=== PATIENT | female | born 1950 | race Caucasian/White ===

== ENCOUNTER → 2019-12-17 12:22 | Outpatient (CLI) | payer MEDICARE, SELFPAY ==
--- NOTE | ~2019-12-17 | DEXA_ITS ---
Bone Density Report Name: Marilia Bustamante Age: 69 Sex: Female Ethnicity: White Date of : 1950 Indication: postmenopausal; screening for osteoporosis; parental hip fracture; Referring Provider: MarioRaymond Study: Bone densitometry was performed. Exam Date: December 17, 2019 Accession number: [id number] Bone Density: Region BMD T-score Z-score Classification AP Spine (L1-L4) 0.950 -0.9 1.3 Normal Femoral Neck (Left) 0.708 -1.3 0.6 Osteopenia Total Hip (Left) 0.840 -0.8 0.7 Normal Femoral Neck (Right) 0.694 -1.4 0.5 Osteopenia Total Hip (Right) 0.834 -0.9 0.7 Normal Total Hip Mean 0.837 -0.9 0.7 Normal World Health Organization criteria for BMD impression classify patients as: Normal (T-score at or above -1.0), Osteopenia (T-score between -1.0 and -2.5), or Osteoporosis (T-score at or below -2.5). 10-year Fracture Risk(1): Major Osteoporotic Fracture 15% Hip Fracture 3.5% Reported Risk Factors: [place] (), Neck BMD=0.694, BMI=28.3, parental fracture (1) FRAX(R) Version 3.08. Fracture probability calculated for an untreated patient. Fracture probability may be lower if the patient has received treatment. Previous Exams: Region Exam Age BMD T-score BMD Change BMD Change Date g/cm2 vs Baseline vs Previous AP Spine(L1-L4) 12/17/2019 69 0.950 -0.9 0.008 0.008 06/16/2014 63 0.941 -1.0 Total Hip(Left) 12/17/2019 69 0.840 -0.8 -0.024 -0.024 06/16/2014 63 0.864 -0.6 Total Hip(Right) 12/17/2019 69 0.834 -0.9 -0.056* -0.056* 06/16/2014 63 0.890 -0.4 *Denotes significance at 95% confidence level, LSC for AP Spine = 0.022 g/cm2, LSC for Total Hip = 0.027 g/cm2 Clinical Information Provided by Patient: Parent has had a hip fracture Has used the following medications: Vitamin D, Calcium Patient maximum height was 64 Menopause Age: 50 Drinks caffeinated beverages Onset of menses at age 10 Number of children 2 Impression: The patient has low bone mass, based on the Right Femoral Neck T-score. The patient has an estimated ten-year risk of hip fracture of 3.5% and an estimated ten-year risk of major fracture of 15%, based on the WHO FRAX algorithm. The patient has risk factors, including: parental hip fracture. The BMD for the Total Hip(Right) decreased, changing by -0.056 since the last DXA exam. Discussion: BONE DENSITY IS LOW AT ONE OR MORE SKELET
== END ==
PROVIDERS: PCP Internal Medicine; Visit Provider Internal Medicine
DX: Z78.0 Asymptomatic menopausal state (principal); M85.89 Other specified disorders of bone density and structure, multiple sites
CPT/HCPCS: 77080

== ENCOUNTER → 2020-02-10 15:14 | Outpatient (CLI) | payer MEDICARE, SELFPAY ==
--- NOTE | ~2020-02-10 | MM_ITS ---
EXAMINATION: MM screening [facility] BI w geraldo HISTORY: Screening mammogram TECHNIQUE: Craniocaudal and mediolateral oblique 3-D tomosynthesis images were obtained and synthetic 2-D images were generated. CAD analysis was submitted and interpreted. COMPARISON: 09/20/2018, 06/16/2014 bilateral digital screening mammogram examinations BREAST PARENCHYMAL COMPOSITION: The breasts are heterogeneously dense, which may obscure small masses . FINDINGS: Occasional bilateral benign calcifications and stable mild fibroglandular asymmetry, withou t significant change since 06/16/2014. There is no evidence of suspicious mass, calcification, or ar chitectural distortion to suggest malignancy in either breast. There has been no suspicious interval change. IMPRESSION: 1. No mammographic evidence of malignancy 2. Recommend routine screening mammography in one year BI-RADS Category 2: Benign finding(s). Reviewed, dictated and finalized at location A.
== END ==
PROVIDERS: PCP Internal Medicine; Visit Provider Internal Medicine
DX: Z12.31 Encounter for screening mammogram for malignant neoplasm of breast (principal)
CPT/HCPCS: 77063; 77067

== ENCOUNTER → 2021-03-10 12:47 | Outpatient (CLI) | payer MEDICARE, SELFPAY ==
--- NOTE | ~2021-03-10 | MM_ITS ---
EXAMINATION: MM screening [facility] BI w geraldo HISTORY: Screening mammogram TECHNIQUE: Craniocaudal and mediolateral oblique 3-D tomosynthesis images were obtained and synthetic 2-D images were generated. CAD analysis was submitted and interpreted. COMPARISON: 02/10/2020, 09/20/2018, 06/16/2014 BREAST PARENCHYMAL COMPOSITION: The breasts are heterogeneously dense, which may obscure small masses . FINDINGS: There is no evidence of suspicious mass, calcification, or architectural distortion to sugg est malignancy in either breast. There has been no suspicious interval change. IMPRESSION: 1. No mammographic evidence of malignancy. 2. Recommend routine screening mammography in one year. BI-RADS Category 1: Negative Reviewed, dictated and finalized at location A. T PICKER
== END ==
PROVIDERS: PCP Internal Medicine; Visit Provider Internal Medicine
DX: Z12.31 Encounter for screening mammogram for malignant neoplasm of breast (principal)
CPT/HCPCS: 77063; 77067

== ENCOUNTER → 2022-05-11 12:18 | Outpatient (CLI) | payer MEDICARE, SELFPAY ==
--- NOTE | ~2022-05-11 | MM_ITS ---
EXAMINATION: MM screening [facility] BI w geraldo HISTORY: Screening mammogram TECHNIQUE: Craniocaudal and mediolateral oblique 3-D tomosynthesis images were obtained and synthetic 2-D images were generated. CAD analysis was submitted and interpreted. COMPARISON: 03/10/2021, 02/10/2020, 09/20/2018 BREAST PARENCHYMAL COMPOSITION: The breasts are heterogeneously dense, which may obscure small masses . FINDINGS: No suspicious mass, calcification, or architectural distortion are identified in either rebecca ast to suggest malignancy. There has been no suspicious interval change. IMPRESSION: 1. No mammographic evidence of malignancy. 2. Recommend routine screening mammography in one year. BI-RADS Category 1: Negative Reviewed, dictated and finalized at location A. RUCTIONAL SUPERVISOR
== END ==
PROVIDERS: PCP Internal Medicine; Visit Provider Internal Medicine
DX: Z12.31 Encounter for screening mammogram for malignant neoplasm of breast (principal)
CPT/HCPCS: 77063; 77067

== ENCOUNTER 2022-12-26 04:07 | Inpatient (IN) | payer MEDICARE, SELFPAY ==
[2022-12-26] VITALS (16 sets, daily range): BP systolic 111–157; BP diastolic 52–88; PULSE 67–78; RESP 13–19; TEMP 35.8–36.7; O2SAT 94–100
--- NOTE | ~2022-12-26 | XR_ITS ---
EXAMINATION: XR ERCP DATE: 12/27/2022 12:54 INDICATION: Gallstones TECHNIQUE: 5 spot fluoroscopic images of the right upper quadrant were obtained during endoscopic ret rograde cholangiopancreatography (ERCP) performed by Dr. Fernandez. Radiologist was not present for the imaging or procedure. The amount of fluoroscopy time used during this procedure was 2.9 minutes. COMPARISON: MRCP dated 12/26/2022 FINDINGS: Retrograde contrast injection demonstrates dilation of the common bile duct to 1.3 cm. No definitive intraluminal filling defects appreciated. Contrast also fills approximately 2 cm diameter structure l ateral to the proximal common bile duct which on prior MRCP appears to represent a fusiform choledoch al cyst along the cystic duct. IMPRESSION: 1. Dilation of the common bile duct and 2 cm diameter contrast filling choledochal cyst along the cys tic duct. See procedure note for further detail. Reviewed, dictated and finalized at location A. IMPRESSION: 1. Dilation of the common bile duct and 2 cm diameter contrast filling choledoc madi cyst along the cystic duct. See procedure note for further detail.
--- NOTE | ~2022-12-26 | CT_ITS ---
EXAMINATION: CT abdomen pelvis w con DATE: 12/26/2022 05:28 INDICATION: Generalized abdominal pain. Nausea and vomiting. TECHNIQUE: Computed tomography (CT) of the abdomen and pelvis was performed with 100 mL Omnipaque 350 intravenous contrast. Automated exposure control and iterative reconstruction technique were employe d. The dose-length product was 596.98 mGy-cm. COMPARISON: None. FINDINGS: The visualized portions of the lung bases demonstrate mild atelectasis. No pleural effusion . The heart size is normal. No pericardial effusion. There is a small sliding hiatal hernia. There is a 5 mm cyst in the liver. There is mild intrahepatic biliary duct dilatation. The common duct is dil ated to 12 mm. The gallbladder is distended and contains gallstones. Gallbladder wall thickening is n oted. The spleen, pancreas, and adrenal glands are normal. There are cysts in the kidneys measuring u p to 8 mm on the right. There are no dilated loops of bowel. There is diverticulosis of the colon wit hout evidence of diverticulitis. The appendix is normal. Aortic atherosclerosis is noted. There are n o pathologically enlarged lymph nodes. There is no free intraperitoneal fluid. There is severe lumbar spondylosis. IMPRESSION: 1. Acute cholecystitis. 2. Mild intrahepatic and extrahepatic biliary duct dilatation. 3. Small sliding hiatal hernia. Reviewed, dictated and finalized at location A.
--- NOTE | ~2022-12-26 | MR_ITS ---
EXAMINATION: MR MRCP wo/w con/w 3D wo ind DATE: 12/26/2022 12:31 INDICATION: Biliary duct dilatation. Abnormal liver function tests. TECHNIQUE: Magnetic resonance imaging (MRI) of the abdomen was performed without and with 15 mL Multi Vadim intravenous contrast. Sequences included coronal T2-weighted FS FSE, coronal T2-weighted FSE, a xial T1-weighted LAVA, coronal FS FIESTA, axial dual-echo T1-weighted SPGR, coronal lava-FLEX, sagitt al T2-weighted FSE, axial T2-weighted FSE, and axial DWI. Thick-slab T2-weighted FSE images were obta ined for magnetic resonance cholangiopancreatography (MRCP). Maximum intensity projection 3-D reconst ructions of the volumetric data were created by the technologist. Postcontrast sequences included cor onal LAVA-flex and time course of axial T1-weighted LAVA. COMPARISON: CT abdomen and pelvis 12/26/2022 FINDINGS: ABDOMEN MRI: There is a 4 mm cyst in the liver. The spleen is normal. The gallbladder is distended an d contains gallstones. Gallbladder wall thickening is noted. The pancreas and adrenal glands are norm al. There are cysts in the kidneys measuring up to 11 mm on the right. There are no dilated loops of bowel. There are no pathologically enlarged lymph nodes. There is no free intraperitoneal fluid. ABDOMEN MRCP: There is mild intrahepatic biliary duct dilatation. The common duct is dilated to 12 mm . There are two 5 mm stones in the common duct. IMPRESSION: 1. Choledocholithiasis with mild intrahepatic and extrahepatic bile duct dilatation. 2. Acute cholecystitis. Reviewed, dictated and finalized at location A. IMPRESSION: 1. Choledocholithiasis with mild intrahepatic and extrahepatic bile duct dilata tion. 2. Acute cholecystitis.
[2022-12-26 04:41] LABS: Basophils Percent Auto 0.3 % (0.2-1.2); Hemoglobin 14.6 g/dL (12.0-15.0); Immature Granulocyte Absolute 0.03 K/mm3 (0.00-0.031); Immature Granulocyte Percent A 0.4 % (0-0.5); Lymphocytes Percent Auto 8.8 % (18.3-44.2); Mean Corpuscular HGB Conc 33.2 g/dl (32-36); Mean Corpuscular Hemoglobin 30.1 pg (26-34); Mean Corpuscular Volume 90.7 fl (80-100); Mean Platelet Volume 9.8 fl (7.4-10.4); Monocytes Absolute Auto 0.4 K/mm3 (0.1-0.6); Monocytes Percent Auto 4.5 % (2.6-8.5); Neutrophils Absolute Auto 6.8 K/mm3 (1.3-6.7); Platelet Count Result 227 k/mm3 (150-375); Red Blood Count 4.85 M/mm3 (4.2-5.4); White Blood Count 7.9 K/mm3 (4.5-10.0)
[2022-12-26 04:52] LABS: Alanine Aminotransferase 426 U/L (6-35); Albumin Level 4.5 g/dL (3.5-5.1); Alkaline Phosphatase 319 U/L (38-126); Anion Gap 11 mmol/L (8-16); Aspartate Amino Transferase 109 U/L (14-36); Bilirubin,Total 0.8 mg/dL (0.2-1.3); Blood Urea Nitrogen 16 mg/dL (7-17); Calcium 9.1 mg/dL (8.4-10.2); Carbon Dioxide 27 mmol/L (22-30); Chloride 99 mmol/L (98-107); Estimated CRCL calculation 59 ml/min; Estimated Glomerular Filt Rate > 60; Glucose 151 mg/dL (65-110); Lipase 65 U/L (23-300); Sodium 137 mmol/L (137-145)
[2022-12-26] MEDS: ONDANSETRON INJ 4 MG/2 ML VIAL IV PUSH ×2 (05:04→07:32)
[2022-12-26] MEDS: HYDROmorphone HCL INJ (*CRX) 1 MG/ML SYR 0.5 MG IV PUSH ×6 (05:04→20:27)
[2022-12-26] MEDS: SODIUM CHLORIDE 0.9% IV 1,000 ML 999 ML IV CONT (05:06)
--- NOTE | 2022-12-26 05:17 | ED.ABDPAIN ---
HPI - Abdominal Pain General Chief Complaint: Abdominal Pain Stated Complaint: abd pain, N/V Time Seen by Provider: 12/26/22 04:14 History of Present Illness HPI narrative: Patient presents to the emergency department with generalized abdominal discomfort and vomiting. Symptoms started a couple hours prior to arrival. Patient is very uncomfortable. Denies history of abdominal surgeries. She is pleasant but in distress. She is accompanied by a friend Related Data Allergies Allergy/AdvReac Type Severity Reaction Status Date / Time sulfamethizole AdvReac Rash Verified 12/26/22 04:33 Review of Systems Review of Systems: Review of systems negative for anything that documented in the HPI Exam Narrative: GENERAL: Well-appearing, well-nourished, and uncomfortable HEAD: Normocephalic, atraumatic. EYES: PERRLA and EOMI. ENT: Nares clear, no rhinorrhea or epistaxis. Mucous membranes moist. NECK: Supple. CHEST: Clear to auscultation. No respiratory distress. HEART: Regular rate and rhythm. ABDOMEN: Soft, nondistended. tender EXTREMITIES: Normal range of motion. No edema. SKIN: Warm, dry, no rash. NEURO: No focal deficits. Alert and oriented x3. PSYCH: Normal mood and affect. Course Course Emergency Course: Differential diagnosis includes but not limited to small bowel obstruction, ileus, colitis, gastroenteritis, cholecystitis, appendicitis. Reevaluation(s) Reevaluation #1: Patient feeling much better after initial dose of Dilaudid but pain has now returned. She has acute cholecystitis on her CT. Liver enzymes elevated but bilirubin normal. Discussed patient's presentation history and results with Dr. Thornton general surgery. He agrees to admit the patient. As needed orders placed. Results and plan discussed with patient and her friend. Vital Signs Vital signs: Vital Signs Temperature 36.3 C L 12/26/22 04:14 Pulse Rate 71 12/26/22 04:14 Respiratory Rate 18 12/26/22 04:14 Blood Pressure 157/76 H 12/26/22 04:14 Pulse Oximetry 98 12/26/22 04:14 Oxygen Delivery Room Air 12/26/22 04:14 Temperature 36.3 C L 12/26/22 04:14 Pulse Rate 76 12/26/22 06:46 Respiratory Rate 19 12/26/22 06:46 Blood Pressure 126/61 12/26/22 06:46 Pulse Oximetry 100 12/26/22 06:46 Oxygen Delivery Room Air 12/26/22 04:14 MDM - Abdominal Pain Lab Data 12/26/22 04:34 12/26/22 04:35 Labs: Lab Results 12/26/22 12/26/22 12/26/22 Range/Units 04:34 04:35 06:59 WBC 7.9 (4.5-10.0) K/mm3 RBC 4.85 (4.2-5.4) M/mm3 Hgb 14.6 (12.0-15.0) g/dL Hct 44.0 (37.0-47.0) % MCV 90.7 (80-100) fl MCH 30.1 (26-34) pg MCHC 33.2 (32-36) g/dl RDW 14.0 (11.5-14.5) % Plt Count 227 (150-375) k/mm3 MPV 9.8 (7.4-10.4) fl Immature Gran % (Auto) 0.4 (0-0.5) % Neut % (Auto) 86.0 H (45.5-73.1) % Lymph % (Auto) 8.8 L (18.3-44.2) % [place] % (Auto) 4.5 (2.6-8.5) % Eos % (Auto) 0.0 (0-4.4) % Baso % (Auto) 0.3 (0.2-1.2) % Lymph # (Auto) 0.70 L (0.9-3.2) K/mm3 [place] # (Auto) 0.4 (0.1-0.6) K/mm3 Eos # (Auto) 0.0 (0-0.3) K/mm3 Baso # (Auto) 0.0 (0.0-0.1) K/mm3 Abs Immat Gran (auto) 0.03 (0.00-0.031) K/mm3 Absolute Neuts (auto) 6.8 H (1.3-6.7) K/mm3 Absolute Nucleated RBC 0.0 (0.0-0.012) K/mm3 Nucleated RBC % 0.0 (0.0-0.2) % Sodium 137 (137-145) mmol/L Potassium 4.0 (3.4-5.0) mmol/L Chloride 99 (98-107) mmol/L Carbon Dioxide 27 (22-30) mmol/L Anion Gap 11 (8-16) mmol/L BUN 16 (7-17) mg/dL Creatinine 0.70 (0.7-1.0) mg/dL Estim Creat Clear Calc 59 ml/min Estimated GFR > 60 (59 - ) Glucose 151 H (65-110) mg/dL Calcium 9.1 (8.4-10.2) mg/dL Total Bilirubin 0.8 (0.2-1.3) mg/dL AST 109 H (14-36) U/L ALT 426 H (6-35) U/L Alkaline Phosphatase 319 H (38-126) U/L Total Protein 8.0 (6.3-8.2) g/dL Albumin 4.5
[2022-12-26 07:07] LABS: Appearance Urine Clear (Clear); Bilirubin Urine Negative (Negative); Blood Urine Negative (Negative); Color Urine Yellow (Yellow); Glucose Urine UA Trace mg/dL (Negative); Ketones Urine 1+ mg/dL (Negative); Leukocyte Esterase Ur Negative LEU/UL (Negative); Nitrate Urine Negative (Negative); Protein Urine Negative (Negative); Specific Grav Ur 1.033 (1.001-1.035); Urobilinogen Urine 0.2 mg/dL (<2.0); pH Urine 7.5 (5.0-9.0)
[2022-12-26 07:14] LABS: Add Urine Microscopic? NO
[2022-12-26] MEDS: PIPERACILLN/TAZ 3.375GM/NS50ML 3.375 GM/50 ML BAG IVPB (07:33)
--- NOTE | 2022-12-26 09:16 | ADMGEN ---
This patient, Marilia Bustamante, was admitted to Medical Room 343-01. Patient/family oriented to hospital policies and general routines including ID bracelet, bed and alarms, visiting hours, pain management, procedures, bathroom and other care routines, personal items, smoking policy, room service/diet, and visiting hours. Information on how to activate the Rapid Response Team has been discussed. Patient/Family are encouraged to report perceived risks to care and to ask questions if they do not understand what they are told or what they should do.
[2022-12-26] MEDS: FAMOTIDINE 20 MG/2 ML VIAL IV PUSH ×2 (09:55→20:27)
[2022-12-26] MEDS: SODIUM CHLORIDE 0.9% IV 1,000 ML 125 ML IV CONT ×2 (09:55→20:00)
--- NOTE | 2022-12-26 10:46 | PM.IMHP ---
H&P: HPI History of Present Illness Date/Time: 12/26/22 10:46 Chief Complaint: Epigastric abdominal pain Narrative: This is a 72-year-old woman who presented to the ER early this morning with epigastric abdominal pain x1 day. She reports having intermittent episodes of heartburn after eating for the past few weeks. Then, 9 days ago she developed epigastric abdominal pain and vomiting but is unsure if this was following a fatty meal. Her epigastric pain radiated to her mid back. Her vomiting lasted about 24 hours, and her abdominal pain improved. She overall felt unwell and had a poor appetite for the next week. She was only eating very small amounts of food and felt that it did aggravate her pain at times. Last night, she had a sandwich and Welsh fries for dinner. About 1-2 hours after eating, she developed severe epigastric abdominal pain and vomiting. She vomited about 5 times. Her pain persisted and she presented to the ER for further evaluation. Labs showed a white blood cell count of 7900, total bilirubin 0.8, AST 109, ALT 426, alk-phos 319, lipase normal. CT scan of the abdomen and pelvis showed gallbladder distention with gallstones and gallbladder wall thickening, consistent with acute cholecystitis. Additionally noted was mild intrahepatic and extrahepatic biliary duct dilatation with a common bile duct measuring 12 mm. She has been admitted to our service for surgical evaluation of acute cholecystitis. She is seen this morning and is still having epigastric abdominal pain. The IV Dilaudid is helping control her pain, but she still rates her epigastric pain at a 5/10 on a pain scale. Denies fevers, chills, acholic stools, or dark-colored urine. No previous abdominal surgeries. Review of Systems Review of Systems: All systems reviewed & are unremarkable except as noted in HPI and below PMFSH Past Medical History Medical History No pertinent past medical history Surgical History Surgical History No significant past surgical history Social History Social History Smoking status: Never smoker Alcohol intake: former Substance use: never Substance use type: does not use Lack of Transportation: No Lack of Food: Never True Current Housing: I Have Housing Concerned About Future Housing: No Difficulty Paying Gas/Electric Bills: No Difficulty Paying for Meds: No Currently Unemployed: No Education: High School Diploma/GED Difficulty w/ Childcare or Family Care: No Spiritual care concerns: No Meds Home Medications and Allergies Home Medications Medication Instructions Recorded Confirmed Type No Home Medications 12/26/22 12/26/22 History Allergies Allergy/AdvReac Type Severity Reaction Status Date / Time sulfamethizole AdvReac Rash Verified 12/26/22 04:33 Vital Signs Vital Signs - 24 hr 12/26/22 04:14 12/26/22 04:31 12/26/22 06:00 Temperature 97.3 F L Pulse Rate 71 72 75 Respiratory Rate 18 15 14 Blood Pressure 157/76 H 155/79 H 148/75 H Pulse Oximetry 98 100 97 Oxygen Delivery Room Air 12/26/22 06:01 12/26/22 06:02 12/26/22 06:15 Temperature Pulse Rate 72 73 72 Respiratory Rate 13 14 15 Blood Pressure 151/72 H Pulse Oximetry 95 95 95 Oxygen Delivery 12/26/22 06:30 12/26/22 06:31 12/26/22 06:45 Temperature Pulse Rate 72 71 78 Respiratory Rate 17 14 14 Blood Pressure 148/76 H Pulse Oximetry 95 96 96 Oxygen Delivery 12/26/22 06:46 12/26/22 07:42 12/26/22 08:13 Temperature 98.0 F Pulse Rate 76 69 72 Respiratory Rate 19 18 18 Blood Pressure 126/61 155/88 H 134/72 Pulse Oximetry 100 98 100 Oxygen Delivery 12/26/22 08:55 Temperature 98.1 F Pulse Rate 69 Respiratory Rate 16 Blood Pressure 134/59 L Pulse Oximetry 99 Oxygen Delivery Exam Cons
--- NOTE | 2022-12-26 11:49 | PC.NURSE ---
Patient off of unit to MRI
--- NOTE | 2022-12-26 12:42 | PC.NURSE ---
Patient returned to unit from MRI
[2022-12-27] VITALS (12 sets, daily range): BP systolic 110–145; BP diastolic 55–84; PULSE 76–81; RESP 12–24; TEMP 36.1–37.2; O2SAT 94–100
[2022-12-27] MEDS: SODIUM CHLORIDE 0.9% IV 1,000 ML 125 ML IV CONT ×2 (05:29→19:16)
[2022-12-27] MEDS: HYDROmorphone HCL INJ (*CRX) 1 MG/ML SYR 0.5 MG IV PUSH ×2 (05:30→10:10)
--- NOTE | 2022-12-27 07:37 | WPDGICN ---
Assessment and Plan Assessment and plan (1) Choledocholithiasis: Code(s): K80.50 - Calculus of bile duct without cholangitis or cholecystitis without obstruction Status: Acute Assessment and Plan: patient with epigastric pain elevated LFTs and abnormal MRCP which suggest common bile duct gallstones in addition cholecystitis and cholelithiasis. Agree with broad-spectrum antibiotic coverage. ERCP will be anticipated in attempt to remove these common bile duct gallstones prior to cholecystectomy. Surgery is following patient. will try to proceed with this today. (2) Acute cholecystitis: Code(s): K81.0 - Acute cholecystitis Status: Acute Assessment and Plan: Patient found to have gallstones an apparent cholecystitis on CT scan imaging. Surgery is following patient. Plan to continue antibiotics with ultimately surgery anticipated. GI Consult Note Consult date/time: 12/27/22 07:37 Reason for consult: choledocholithiasis HPI: Marilia Bustamante is a 72 year old female I am asked to see because of choledocholithiasis and cholecystitis. Patient reports she has had vague intermittent abdominal pain over the last several weeks. patient developed rather significant epigastric pain over the last 2 days. This occurred after eating out including Armenian fries. Pain occurred in the mid epigastric area. It was associated with some nausea and vomiting. For this reason patient presented to the emergency room. Transaminases and alkaline phosphatase was elevated. CT scan suggested cholecystitis. MRCP was performed yesterday suggesting 2 common bile duct gallstones in addition to cholelithiasis and cholecystitis. Patient has achieved some pain control. She denies any fever. Her stools have remained normal color and she denies any jaundice. She never knew that she had gallstones prior to this. Past medical is suggestive of diverticulitis in the past. Patient's family history is noncontributory. Patient continues to have mild epigastric discomfort this morning. Review of Systems Review of Systems: Review of systems noncontributory. [facility] Past Medical History Medical History No pertinent past medical history Surgical History Surgical History No significant past surgical history Social History Social History (Reviewed 12/26/22 @ 10:54 by VERONICA Boo Smoking status: Never smoker Alcohol intake: former Substance use: never Substance use type: does not use Lack of Transportation: No Lack of Food: Never True Current Housing: I Have Housing Concerned About Future Housing: No Difficulty Paying Gas/Electric Bills: No Difficulty Paying for Meds: No Currently Unemployed: No Education: High School Diploma/GED Difficulty w/ Childcare or Family Care: No Spiritual care concerns: No Meds Home Medications and Allergies Home Medications Medication Instructions Recorded Confirmed Type No Home Medications 12/26/22 12/26/22 History Allergies Allergy/AdvReac Type Severity Reaction Status Date / Time sulfamethizole AdvReac Rash Verified 12/26/22 04:33 Vital Signs Vital Signs - 24 hr 12/26/22 07:42 12/26/22 08:13 12/26/22 08:55 Temperature 98.0 F 98.1 F Pulse Rate 69 72 69 Respiratory Rate 18 18 16 Blood Pressure 155/88 H 134/72 134/59 L Pulse Oximetry 98 100 99 Oxygen Delivery 12/26/22 14:54 12/26/22 21:33 12/26/22 20:00 Temperature 97.3 F L 96.5 F L Pulse Rate 67 72 72 Respiratory Rate 18 18 18 Blood Pressure 131/52 L 111/52 L Pulse Oximetry 98 94 94 Oxygen Delivery Room Air 12/27/22 05:48 Temperature 96.9 F L Pulse Rate 77 Respiratory Rate 16 Blood Pressure 127/55 L Pulse Oximetry 96 Oxygen Delivery Exam Narrative: Physical exam reveals patient to be alert. Vital signs stable. HEENT
[2022-12-27] MEDS: FAMOTIDINE 20 MG/2 ML VIAL IV PUSH ×2 (08:17→20:08)
[2022-12-27] MEDS: LACTATED RINGERS 1,000 ML 150 ML IV CONT (11:50)
--- NOTE | 2022-12-27 12:02 | WPDANESEPPF ---
Anes - Initial Pre Proc Eval Procedure: Operation Date: 12/26/22 14:00 Proposed Procedures p Laparoscopic Cholecystectomy - Jina Thornton MD Operation Date: 12/27/22 14:15 Proposed Procedures p Endoscopic Retro Cholangiopancreatogram - Jarvis Browne MD Date/Time: 12/27/22 12:02 Surgeon: Jina Thornton MD Pre Op Diagnosis: Acute Kelli Patient Data Age: 72 Gender: F Height: 1.63 m Weight: 72.7 kg Last Vital Signs Temp 98.9 F 12/27/22 11:24 Pulse 78 12/27/22 11:24 Resp 18 12/27/22 11:24 BP 137/61 12/27/22 11:24 Pulse Ox 96 12/27/22 11:24 O2 Del Method Room Air 12/27/22 11:24 Allergies Allergy/AdvReac Type Severity Reaction Status Date / Time sulfamethizole AdvReac Rash Verified 12/26/22 04:33 Home Medications Medication Instructions Recorded Confirmed Type No Home Medications 12/26/22 12/26/22 History Patient hx anesthesia problems: none Family hx anesthesia problems: none Results Review: All pre-operative results and documents have been reviewed as part of the pre-operative evaluation. [facility] Past Medical History Medical History No pertinent past medical history Surgical History Surgical History No significant past surgical history Social History Social History Smoking status: Never smoker Alcohol intake: former Substance use: never Substance use type: does not use Lack of Transportation: No Lack of Food: Never True Current Housing: I Have Housing Concerned About Future Housing: No Difficulty Paying Gas/Electric Bills: No Difficulty Paying for Meds: No Currently Unemployed: No Education: High School Diploma/GED Difficulty w/ Childcare or Family Care: No Spiritual care concerns: No Anes - Eval Final PreProcedure Day of Procedure 12/27/22 12:02 Patient weight: normal Heart: regular rate and rhythm Lungs: clear to auscultation Airway: Mallampati scale class II Neurological: alert and oriented Last oral intake: >/= 8 hours ASA classification: III Emergent: no Anesthetic plan: proceed Anesthesia type and monitoring: general ETT and standard monitoring Results Review: All pre-operative results and documents have been reviewed as part of the pre-operative evaluation. Informed Consent: The patient's anesthetic plan and its attendant risks and benefits were discussed with the patient/family/POA. Questions were solicited and answers provided to the satisfaction of the patient/family/POA.
--- NOTE | 2022-12-27 14:13 | WPDANESPN ---
Anes - Prog Note Post-Op Date/Time: 12/27/22 14:13 Cardiovascular status: normal Respiratory status: normal Airway patency: baseline Mental status: baseline Post-Op hydration status: normal Vital Signs: Last Vital Signs Temp 36.9 C 12/27/22 12:56 Pulse 76 12/27/22 13:46 Resp 17 12/27/22 13:46 BP 138/73 12/27/22 13:46 Pulse Ox 96 12/27/22 13:46 O2 Del Method Room Air 12/27/22 13:46 O2 Flow Rate 4 12/27/22 13:06 Pain Score (VAS): 2/10 I/O: Intake & Output 12/26/22 12/27/22 12/27/22 23:59 07:59 15:59 Intake Total 1000 1000 50 Balance 1000 1000 50 Laboratory Tests 12/26/22 04:34 12/26/22 04:35 Post-procedural complaints: none Patient Feedback: Patient satisfied with anesthetic care.
--- NOTE | 2022-12-27 15:47 | PM.PNGS ---
Progress Note: A&P Assessment and Plan (1) Acute cholecystitis: Code(s): K81.0 - Acute cholecystitis Status: Acute Assessment and Plan: will reassess exam in am given recent anesthesia, if improved will dc c abx and refer to [facility] as outpt (2) Choledochal cyst: Code(s): Q44.4 - Choledochal cyst Status: Acute Assessment and Plan: will need referral to [facility] Subjective Subjective Date/Time Seen: 12/27/22 15:47 Interval history: still waking from anesthesia s/p ERCP, report reviewed Review of Systems Review of Systems: All systems reviewed & are unremarkable except as noted in HPI and below Exam Const: General: cooperative, comfortable and no acute distress Resp: Auscultation: clear to auscultation bilaterally Cardio: Rate: regular rate Rhythm: regular rhythm GI: Inspection: normal to inspection and distended GI Palp: Yes abdominal tenderness and Yes Soft to palpation Objective Data Vital Signs Vital Signs: Vital Signs - 24 hr 12/26/22 21:33 12/26/22 20:00 12/27/22 05:48 Temperature 35.8 C L 36.1 C L Pulse Rate 72 72 77 Respiratory Rate 18 18 16 Blood Pressure 111/52 L 127/55 L Pulse Oximetry 94 94 96 Oxygen Delivery Room Air Oxygen Flow Rate 12/27/22 08:22 12/27/22 11:04 12/27/22 11:24 Temperature 37.2 C Pulse Rate 78 Respiratory Rate 18 Blood Pressure 137/61 Pulse Oximetry 94 96 Oxygen Delivery Room Air Room Air Room Air Oxygen Flow Rate 12/27/22 12:56 12/27/22 13:06 12/27/22 13:16 Temperature 36.9 C Pulse Rate 77 78 81 Respiratory Rate 18 20 12 Blood Pressure 110/56 L 124/68 140/73 Pulse Oximetry 98 100 100 Oxygen Delivery Nasal Cannula Nasal Cannula Room Air Oxygen Flow Rate 10 4 12/27/22 13:26 12/27/22 13:36 12/27/22 13:46 Temperature Pulse Rate 81 78 76 Respiratory Rate 24 H 18 17 Blood Pressure 134/84 145/71 H 138/73 Pulse Oximetry 100 100 96 Oxygen Delivery Room Air Room Air Room Air Oxygen Flow Rate 12/27/22 14:00 Temperature 36.3 C L Pulse Rate 79 Respiratory Rate 14 Blood Pressure 137/69 Pulse Oximetry 94 Oxygen Delivery Oxygen Flow Rate Intake/Output Intake/Output: Intake & Output 12/24/22 12/25/22 12/26/22 12/27/22 23:59 23:59 23:59 23:59 Intake Total 2049 105 Balance 2049 105 Meds/Results Medications: Active Medications Generic Name Dose Route Start Last Admin Trade Name Freq PRN Reason Stop Dose Admin Famotidine 20 mg 12/26/22 09:00 12/27/22 08:17 Famotidine 20 Mg/2 Ml Vial IV PUSH 20 mg Q12HR SALAZAR Administration Hydromorphone HCl 0.5 mg 12/26/22 11:03 12/27/22 10:10 Hydromorphone Hcl Inj (*Crx) 1 Mg/Ml Syr IV PUSH 0.5 mg Q2H PRN Administration Pain Rated 7-10 Sodium Chloride 1,000 mls @ 125 mls/hr 12/26/22 07:25 12/27/22 05:29 Normal Saline Iv IV CONT 125 mls/hr .Q8H SALAZAR Administration Ondansetron HCl 4 mg 12/26/22 07:24 Ondansetron Inj 4 Mg/2 Ml Vial IV PUSH Q4H PRN Nausea Radiology Results: ITS Impressions Abdomen/Pelvis CT 12/26/22 05:56 IMPRESSION: 1. Acute cholecystitis. 2. Mild intrahepatic and extrahepatic biliary duct dilatation. 3. Small sliding hiatal hernia. MRCP 12/26/22 12:38 IMPRESSION: 1. Choledocholithiasis with mild intrahepatic and extrahepatic bile duct dilatation. 2. Acute cholecystitis. Endo Retro Cholangiopancreatogram 12/27/22 12:55 IMPRESSION: 1. Dilation of the common bile duct and 2 cm diameter contrast filling choledochal cyst along the cystic duct. See procedure note for further detail.
[2022-12-27] MEDS: ACETAMINOPHEN 500 MG TABLET 1000 MG PO (19:15)
[2022-12-28] VITALS (17 sets, daily range): BP systolic 99–130; BP diastolic 44–64; PULSE 64–168; RESP 16–18; TEMP 36.1–37; O2SAT 94–98
--- NOTE | 2022-12-28 | ECHO_ITS ---
Patient Info Name: Marilia Bustamante Age: 72 years : 1950 Gender: Female Ht: 64 in Wt: 160 lbs BSA: 1.83 m2 HR: 74 bpm BP: 128 / 62 mmHg Heart Rhythm: Sinus Rhythm Technical Quality: Fair Exam Date: 12/28/2022 2:34 PM Exam Location: [facility] Pulmonary Exam Room: [facility] Patient Status: Inpatient Admit Date: 12/27/2022 Staff Ordering Physician: Mega Kevin MD Front Desk Specialist: Ana Lawler RDCS Attending Provider: Jian Thornton MD Exam Type: CA echo doppler color flow Study Info Indications - AFIB Complete two-dimensional, color flow and Doppler transthoracic echocardiogram is performed. Summary 1. Left ventricular chamber dimension is normal. 2. Left ventricular systolic function is normal, estimated at >70%. 3. There is no increased left ventricular wall thickness. 4. The left ventricular diastolic function is grade I diastolic dysfunction. 5. Mild to moderate lipomatous hypertrophy of the interatrial septum. 6. There is mild aortic valve sclerosis. 7. There is no aortic valve stenosis. 8. There is trace mitral valve regurgitation. 9. There is trace tricuspid valve regurgitation. 10. No pulmonary hypertension, estimated pulmonary arterial systolic pressure is 27 mmHg. Left Ventricle Left ventricular chamber dimension is normal. Left ventricular systolic function is normal, estimated at >70%. There is no increased left ventricular wall thickness. The left ventricular diastolic function is grade I diastolic dysfunction. Right Ventricle Right ventricular chamber dimension is normal. Right ventricular systolic function is normal. Left Atria Left atrial chamber dimension is normal. Right Atria Right atrial chamber dimension is normal. Atrial Septum Mild to moderate lipomatous hypertrophy of the interatrial septum. Aortic Valve The aortic valve is probable trileaflet. There is mild aortic valve sclerosis. There is no aortic valve stenosis. There is no aortic valve regurgitation. Pulmonic Valve The pulmonic valve is not well visualized. There is trace pulmonic regurgitation. Mitral Valve The mitral valve has thickened leaflets. There is trace mitral valve regurgitation. The mitral valve annulus is moderately calcified. Tricuspid Valve The tricuspid valve leaflets are normal. There is trace tricuspid valve regurgitation. No pulmonary hypertension, estimated pulmonary arterial systolic pressure is 27 mmHg. Pericardium/Pleural The pericardium appears normal. There is trivial pericardial effusion. Inferior Vena Cava Normal inferior vena cava with >50% collapse upon inspiration consistent with normal right atrial pressure, 5 mmHg. Aorta The aortic root size at the sinus of Valsalva is normal. Left Ventricular Outflow Tract Name Value Normal LVOT 2D LVOT Diameter 2.0 cm LVOT Doppler LVOT Peak Gradient 7 mmHg LVOT Mean Gradient 5 mmHg LVOT VTI 29 cm LVOT VTI/AV VTI Ratio 0.8 LVOT Stroke Volume 86 ml LVOT CO 19.2 l/min LVOT CI 10.5 l/min/m2
[2022-12-28] MEDS: SODIUM CHLORIDE 0.9% IV 1,000 ML 125 ML IV CONT ×3 (02:58→19:52)
--- NOTE | 2022-12-28 04:25 | ECG_ITS ---
Measurements Intervals [place] Rate: 168 P: FL: 0 QRS: -28 QRSD: 94 T: 68 QT: 265 QTc: 443 Interpretive Statements ATRIAL FIBRILLATION WITH RAPID VENTRICULAR RESPONSE INFERIOR INFARCT, AGE INDETERMINATE ST-T WAVE ABNORMALITY IN ANTEROLAT/HIGH LAT LEADS- CONSIDER ISCHEMIA BASELINE ARTIFACT- II, III ABNORMAL ECG NO PREVIOUS ECG AVAILABLE FOR COMPARISON Electronically Signed On 12-28-2022 8:28:28 CDT by Sameer Puga D.O.
[2022-12-28] MEDS: METOPROLOL TARTRATE INJ 5 MG/5 ML VIAL IV PUSH (05:32)
[2022-12-28] MEDS: METOPROLOL SUCCINATE EXT REL 25 MG TABCR (06:11)
--- NOTE | 2022-12-28 06:14 | ECG_ITS ---
Measurements Intervals [place] Rate: 81 P: 52 MA: 149 QRS: -30 QRSD: 96 T: 14 QT: 357 QTc: 415 Interpretive Statements SINUS RHYTHM WITH MARKED SINUS ARRHYTHMIA DELAYED PRECORDIAL R/S TRANSITION CONSIDER INFERIOR INFARCT, AGE INDETERMINATE ABNORMAL ECG COMPARED TO ECG 12/28/2022 04:46:20 SINUS RHYTHM NOW PRESENT SINUS ARRHYTHMIA NOW PRESENT Electronically Signed On 12-28-2022 8:32:35 CDT by Sameer Puga D.O.
--- NOTE | 2022-12-28 07:11 | PC.NURSE ---
This patient, Marilia Bustamante, was received from [[id number] ] on 12/28/22 at 0545. Patient/family oriented to unit policies and routines
[2022-12-28] MEDS: FAMOTIDINE 20 MG/2 ML VIAL IV PUSH ×2 (08:49→19:52)
--- NOTE | 2022-12-28 11:11 | PM.CNCAR ---
Assessment and Plan Assessment and plan (1) Atrial fibrillation with rapid ventricular response: Code(s): I48.91 - Unspecified atrial fibrillation Status: Acute Assessment and Plan: New onset symptomatic atrial fibrillation with rapid ventricular response with heart rate up to the 160s. The most imminent contribution likely acute cholecystitis, however, clearly patient has an underlying predisposition for development of atrial fibrillation as counseled. Discussed at great length natural history of of atrial fibrillation, paroxysmal nature of her atrial fibrillation thus far, medical therapy various options including AV sepideh blocking agents, antiarrhythmics, indications for systemic anticoagulation, the relative risks and benefits with aspirin versus systemic anticoagulation balance with reduction in embolic stroke risk and bleeding. We discussed the anticipation she will have atrial fibrillation recur in the future and the elevated risk perioperatively given planned cholecystectomy. CHADS2 Vasc score 2 (age, female sex) in which aspirin 81 mg daily reasonable. Once she turns 73, however, CHADS2 Vasc score will then be 3 and systemic anticoagulation advised as counseled. Patient verbalized understanding and agreed. Explained that if directed rhythm control intervention with electrical cardioversion systemic anticoagulation would be advised to reduce risk for embolic stroke. We also discussed catheter based therapies including atrial fibrillation ablation if appropriate in the future. Patient does not endorse a history of thyroid disease or sleep apnea. We also discussed balance of heart rate/rhythm control and avoidance of medication side effects, symptomatic bradycardia and or hypotension. Patient verbalized understanding and agreed with plan of care. All questions answered to her satisfaction. We also discussed while low the risk for stroke despite guideline recommendations for aspirin versus systemic anticoagulation nonetheless exists but that at this time statistically speaking bleeding risk would outweigh stroke risk on systemic anticoagulation. -continue Toprol XL however increase to 25 mg daily as heart rate permits. Need to monitor closely on a preoperative basis as I anticipate she will have recurrence of atrial fibrillation. IV metoprolol as affective or necessary in unresponsive to AV sepideh blocking agents perioperatively amiodarone not unreasonable but given elevated LFTs with exercise caution in this regard. -2D echocardiogram pending. Will review when available to assess for LV function, chamber size, valve pathology, pulmonary pressures. Her exam is not suggestive significant valvular heart disease but further confirmation warranted. Check TSH. -continue to monitor on telemetry. -DVT prophylaxis. -monitor renal function electrolytes closely. Check BMP, magnesium. -check coagulation studies. -continue to monitor bradycardia. -further recommendation to follow after review of the above evaluation. -clearly, patient does not tolerate atrial fibrillation with RVR well and so a rhythm control strategy was discussed as her primary focus moving forward. (2) Acute cholecystitis: Code(s): K81.0 - Acute cholecystitis Status: Acute Assessment and Plan: Management per Primary Service, GI, and surgery. Anticipated cholecystectomy. May proceed to the operating room necessary, continue to monitor closely as recurrence of atrial fibrillation perioperatively likely. As above, check electrolytes preoperatively to ensure stability in this regard to keep potassium closer to 4 and magnesium around 2.0. (3) Elevated LFTs: Code(s): R79.89 - Other specified abnormal findings of blood chemistry Status: Acute Assessment and Plan: Continue to monitor. Very likely consequence of acute cholecystitis and associated pathology. History of Present Illness History of Present Illness Consult date/time: Date of se
--- NOTE | 2022-12-28 11:13 | PM.IMCN ---
Assessment and Plan Assessment and plan (1) Choledocholithiasis: Code(s): K80.50 - Calculus of bile duct without cholangitis or cholecystitis without obstruction Status: Acute (2) Dilation of biliary tract: Code(s): K83.8 - Other specified diseases of biliary tract Status: Acute (3) Elevated LFTs: Code(s): R79.89 - Other specified abnormal findings of blood chemistry Status: Acute (4) Acute cholecystitis: Code(s): K81.0 - Acute cholecystitis Status: Acute Assessment and Plan: no signs of chf on exam or symptomatically ok for surgery - echo ordered (5) Afib: Code(s): I48.91 - Unspecified atrial fibrillation Status: Acute Assessment and Plan: continue bb Paroxysmal - now in NSR No anticoagulation as she is likely can have surgery. Cardiology consult ordered. Echo ordered TSH pending CHADSVASC2 score 2 (borderline htn = 3) - decide on AC post op HPI Data of Consult Consult date: 12/28/22 Requesting Physician: Jina Thornton MD Primary Care Provider: Sandra Busby, Consult Narrative Narrative: Marilia Bustamante is a 72 year old female Consult for medical management, AFib overnight. Cardiology has also been consulted. This is a 72-year-old woman who presented to the ER early this morning with epigastric abdominal pain x1 day.? She reports having intermittent episodes of heartburn after eating for the past few weeks.? Then, 9 days ago she developed epigastric abdominal pain and vomiting but is unsure if this was following a fatty meal.? Her epigastric pain radiated to her mid back.? Her vomiting lasted about 24 hours, and her abdominal pain improved.? She overall felt unwell and had a poor appetite for the next week.? She was only eating very small amounts of food and felt that it did aggravate her pain at times.? Last night, she had a sandwich and [place] fries for dinner.? About 1-2 hours after eating, she developed severe epigastric abdominal pain and vomiting.? She vomited about 5 times.? Her pain persisted and she presented to the ER for further evaluation.? Labs showed a white blood cell count of 7900, total bilirubin 0.8, AST 109, ALT 426, alk-phos 319, lipase normal.? CT scan of the abdomen and pelvis showed gallbladder distention with gallstones and gallbladder wall thickening, consistent with acute cholecystitis.? Additionally noted was mild intrahepatic and extrahepatic biliary duct dilatation with a common bile duct measuring 12 mm.? She has been admitted to our service for surgical evaluation of acute cholecystitis.? She is seen this morning and is still having epigastric abdominal pain.? The IV Dilaudid is helping control her pain, but she still rates her epigastric pain at a 5/10 on a pain scale.? Denies fevers, chills, acholic stools, or dark-colored urine.? No previous abdominal surgeries. Review of Systems Review of Systems: Ten point review systems negative except as stated in HPI [facility] Past Medical History Medical History Choledochal cyst No pertinent past medical history Surgical History Surgical History No significant past surgical history Social History Social History Smoking status: Never smoker Alcohol intake: former Substance use: never Substance use type: does not use Lack of Transportation: No Lack of Food: Never True Current Housing: I Have Housing Concerned About Future Housing: No Difficulty Paying Gas/Electric Bills: No Difficulty Paying for Meds: No Currently Unemployed: No Education: High School Diploma/GED Difficulty w/ Childcare or Family Care: No Spiritual care concerns: No Meds Home Medications and Allergies Home Medications Medication Instructions Recorded Confirmed Type No Home M
--- NOTE | 2022-12-28 12:13 | WPDGIPROGNO ---
Progress Note: A&P Assessment and Plan (1) Choledocholithiasis: Code(s): K80.50 - Calculus of bile duct without cholangitis or cholecystitis without obstruction Status: Acute Assessment and Plan: Common bile duct stone extracted during ERCP yesterday. Patient feels much improved today. Anticipate cholecystectomy electively. Intraoperative cholangiogram advised at that time. (2) Choledochal cyst: Code(s): Q44.4 - Choledochal cyst Status: Acute Assessment and Plan: Patient may have a choledochal cyst as seen on imaging studies from the ERCP. I would advise a following this conservatively at present. should additional concerns remain patient can be re-evaluated at [facility] at a later date. (3) Acute cholecystitis: Code(s): K81.0 - Acute cholecystitis Status: Acute Assessment and Plan: Surgery following patient for a ventral cholecystectomy. Currently on antibiotics appears to be improving clinically. (4) Afib: Code(s): I48.91 - Unspecified atrial fibrillation Status: Acute Assessment and Plan: Patient has for brief episode of atrial fibrillation yesterday. Cardiology has seen patient will follow her. Subjective Date/time seen: 12/28/22 12:13 Interval history: Patient alert comfortable this morning. Denies abdominal pain. Tolerating liquid without difficulty. She had an episode of tachycardia last night not identified as having a short episode of atrial fibrillation. Cardiology now following patient. Patient anxious to have cholecystectomy. Imaging studies from ERCP showed that she likely has a choledochal cyst. Review of Systems Review of Systems: Review of systems noncontributory. Exam Narrative: Physical exam reveals patient be alert afebrile and anicteric. Vital signs stable. HEENT exam unremarkable. No icterus noted. Lungs are clear. Heart without murmur. Abdomen bowel sounds present soft and nontender. Objective Data Vital Signs Vital Signs: Vital Signs - 24 hr 12/27/22 12:56 12/27/22 13:06 12/27/22 13:16 Temperature 98.4 F Pulse Rate 77 78 81 Respiratory Rate 18 20 12 Blood Pressure 110/56 L 124/68 140/73 Pulse Oximetry 98 100 100 Oxygen Delivery Nasal Cannula Nasal Cannula Room Air Oxygen Flow Rate 10 4 12/27/22 13:26 12/27/22 13:36 12/27/22 13:46 Temperature Pulse Rate 81 78 76 Respiratory Rate 24 H 18 17 Blood Pressure 134/84 145/71 H 138/73 Pulse Oximetry 100 100 96 Oxygen Delivery Room Air Room Air Room Air Oxygen Flow Rate 12/27/22 14:00 12/27/22 20:00 12/27/22 21:35 Temperature 97.3 F L 98.8 F Pulse Rate 79 79 78 Respiratory Rate 14 14 17 Blood Pressure 137/69 125/56 L Pulse Oximetry 94 94 95 Oxygen Delivery Room Air Oxygen Flow Rate 12/28/22 04:20 12/28/22 05:32 12/28/22 05:51 Temperature 98.6 F 96.9 F L Pulse Rate 70 168 H 154 H Respiratory Rate 16 16 Blood Pressure 130/64 99/64 L Pulse Oximetry 96 94 Oxygen Delivery Oxygen Flow Rate 12/28/22 06:11 12/28/22 05:47 12/28/22 06:06 Temperature Pulse Rate 80 149 H 94 Respiratory Rate Blood Pressure Pulse Oximetry Oxygen Delivery Oxygen Flow Rate 12/28/22 08:00 12/28/22 08:00 12/28/22 08:00 Temperature 96.9 F L Pulse Rate 75 74 Respiratory Rate 16 Blood Pressure 128/62 Pulse Oximetry 98 Oxygen Delivery Room Air Oxygen Flow Rate 12/28/22 10:00 12/28/22 12:04 Temperature 97.3 F L Pulse Rate 95 70 Respiratory Rate 16 Blood Pressure 124/52 L Pulse Oximetry 96 Oxygen Delivery Oxygen Flow Rate Intake/Output Intake/Output: Intake & Output 12/25/22 12/26/22 12/27/22 12/28/22 23:59 23:59 23:59 23:59 Intake Total 2049 3049 1470 Output Total 0 Balance 2049 3049 147 Meds/Results Medications: Active Medications Generic Name Dose Route Start Last Admin Trade Name Freq PRN Reason Stop Dose Admin Acetaminophen 1,
[2022-12-28 12:19] LABS: Hemoglobin A1C 5.5 % (<5.7)
--- NOTE | 2022-12-28 12:49 | WPDANESPN ---
Anes - Prog Note Post-Op Date/Time: 12/28/22 12:49 Cardiovascular status: normal Respiratory status: normal Airway patency: baseline Mental status: baseline Post-Op hydration status: normal Vital Signs: Last Vital Signs Temp 36.3 C L 12/28/22 12:04 Pulse 70 12/28/22 12:04 Resp 16 12/28/22 12:04 BP 124/52 L 12/28/22 12:04 Pulse Ox 96 12/28/22 12:04 O2 Del Method Room Air 12/28/22 08:00 O2 Flow Rate 4 12/27/22 13:06 Pain Score (VAS): 0/10 I/O: Intake & Output 12/27/22 12/28/22 12/28/22 23:59 07:59 15:59 Intake Total 1999 1000 1470 Output Total 0 Balance 1999 1000 1470 Laboratory Tests 12/26/22 04:34 12/26/22 04:35 12/26/22 04:34 Hemoglobin A1c 5.5 TSH (Reflex) 1.010 Post-procedural complaints: none Patient Feedback: Patient satisfied with anesthetic care.
[2022-12-28 13:30] LABS: Prothrombin Time 13.9 Seconds (11.1-14.7)
[2022-12-28 13:43] LABS: Alanine Aminotransferase 387 U/L (6-35); Albumin Level 3.5 g/dL (3.5-5.1); Alkaline Phosphatase 450 U/L (38-126); Aspartate Amino Transferase 268 U/L (14-36); Bilirubin Direct 0.1 mg/dL (0-0.3); Bilirubin,Total 2.4 mg/dL (0.2-1.3)
[2022-12-28 13:44] LABS: Anion Gap 7 mmol/L (8-16); Blood Urea Nitrogen 11 mg/dL (7-17); Carbon Dioxide 27 mmol/L (22-30); Chloride 102 mmol/L (98-107); Estimated CRCL calculation 68 ml/min; Estimated Glomerular Filt Rate > 60; Glucose 133 mg/dL (65-110); Magnesium 2.1 mg/dL (1.6-2.3); Potassium 3.3 mmol/L (3.4-5.0); Sodium 136 mmol/L (137-145)
--- NOTE | 2022-12-28 15:40 | PC.NURSE ---
On 12/28/22, the student, Angelito SUAREZ [facility], provided care and completed [facility] documentation on this patient. I have reviewed the student's documentation and agree with the findings.
--- NOTE | 2022-12-28 15:57 | PM.PNGS ---
Progress Note: A&P Assessment and Plan (1) Acute cholecystitis: Code(s): K81.0 - Acute cholecystitis Status: Acute Assessment and Plan: No longer having any abdominal pain. Will advance diet to low fat. 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 Started on a beta ev. She is now in IMU. Continue to monitor. Plan I have discussed the patient's case and plan of care with Dr. Thornton. Subjective Subjective Date/Time Seen: 12/28/22 15:57 Patient reports: feels better, tolerating liquids well and afebrile Interval history: Patient feeling better. Denies abdominal pain, nausea, or vomiting. She was found to have an episode of atrial fibrillation last night. Cardiology was consulted. Exam Const: General: comfortable and no acute distress Orientation/consciousness: patient oriented x3 GI: Inspection: non-distended GI Palp: Yes Soft to palpation, No Tenderness to palpation present (GI) and No Guarding due to palpation present (GI) Auscultation: normal bowel sounds Extrem: General: normal to inspection Psych: Mental Status: mental status grossly normal Insight: Good insight present (Psych) Objective Data Vital Signs Vital Signs: Vital Signs - 24 hr 12/27/22 20:00 12/27/22 21:35 12/28/22 04:20 Temperature 98.8 F 98.6 F Pulse Rate 79 78 70 Respiratory Rate 14 17 16 Blood Pressure 125/56 L 130/64 Pulse Oximetry 94 95 96 Oxygen Delivery Room Air 12/28/22 05:32 12/28/22 05:51 12/28/22 06:11 Temperature 96.9 F L Pulse Rate 168 H 154 H 80 Respiratory Rate 16 Blood Pressure 99/64 L Pulse Oximetry 94 Oxygen Delivery 12/28/22 05:47 12/28/22 06:06 12/28/22 08:00 Temperature 96.9 F L Pulse Rate 149 H 94 75 Respiratory Rate 16 Blood Pressure 128/62 Pulse Oximetry 98 Oxygen Delivery 12/28/22 08:00 12/28/22 08:00 12/28/22 10:00 Temperature Pulse Rate 74 95 Respiratory Rate Blood Pressure Pulse Oximetry Oxygen Delivery Room Air 12/28/22 12:04 12/28/22 12:00 Temperature 97.3 F L Pulse Rate 70 71 Respiratory Rate 16 Blood Pressure 124/52 L Pulse Oximetry 96 Oxygen Delivery Intake/Output Intake/Output: Intake & Output 12/25/22 12/26/22 12/27/22 12/28/22 23:59 23:59 23:59 23:59 Intake Total 2049 3049 2470 Output Total 0 Balance 2049 3049 2470 Meds/Results Medications: Active Medications Generic Name Dose Route Start Last Admin Trade Name Freq PRN Reason Stop Dose Admin Acetaminophen 1,000 mg 12/27/22 18:41 12/27/22 19:15 Acetaminophen 500 Mg Tablet PO 1,000 mg Q8HR PRN Administration Headache Famotidine 20 mg 12/26/22 09:00 12/28/22 08:49 Famotidine 20 Mg/2 Ml Vial IV PUSH 20 mg Q12HR SALAZAR Administration Hydromorphone HCl 0.5 mg 12/26/22 11:03 12/27/22 10:10 Hydromorphone Hcl Inj (*Crx) 1 Mg/Ml Syr IV PUSH 0.5 mg Q2H PRN Administration Pain Rated 7-10 Sodium Chloride 1,000 mls @ 125 mls/hr 12/26/22 07:25 12/28/22 12:19 Normal Saline Iv IV CONT 125 mls/hr .Q8H SALAZAR Administration Metoprolol Succinate 12.5 mg 12/29/22 09:00 Metoprolol Succinate Ext Rel 12.5 Mg Tabcr PO QAM SALAZAR Ondansetron HCl 4 mg 12/26/22 07:24 Ondansetron Inj 4 Mg/2 Ml Vial IV PUSH Q4H PRN Nausea Perflutren Lipid Microsphere 0 ml 12/28/22 11:13 Perflutren Lipid Microspheres 1.5 Ml Vial Diluted To 10 Ml Total Volume IV PUSH 12/31/22 11:13 ONCE PRN adequate visualization Protocol [facility]
[2022-12-28] MEDS: POTASSIUM CHLORIDE 20 MEQ ER TABLET 40 MEQ PO (16:27)
[2022-12-29] VITALS (10 sets, daily range): BP systolic 105–120; BP diastolic 50–58; PULSE 65–86; RESP 12–18; TEMP 36.4–37.2; O2SAT 95–98
[2022-12-29 04:47] LABS: Hematocrit 37.8 % (37.0-47.0); Hemoglobin 12.4 g/dL (12.0-15.0); Mean Corpuscular HGB Conc 32.8 g/dl (32-36); Mean Corpuscular Volume 91.3 fl (80-100); Mean Platelet Volume 9.9 fl (7.4-10.4); Platelet Count Result 204 k/mm3 (150-375); Red Blood Count 4.14 M/mm3 (4.2-5.4); Red Cell Distribution Width 14.3 % (11.5-14.5); White Blood Count 8.8 K/mm3 (4.5-10.0)
[2022-12-29 04:59] LABS: Alanine Aminotransferase 252 U/L (6-35); Alkaline Phosphatase 368 U/L (38-126); Anion Gap 6 mmol/L (8-16); Aspartate Amino Transferase 105 U/L (14-36); Bilirubin,Total 1.3 mg/dL (0.2-1.3); Blood Urea Nitrogen 8 mg/dL (7-17); Calcium 7.8 mg/dL (8.4-10.2); Carbon Dioxide 26 mmol/L (22-30); Chloride 105 mmol/L (98-107); Estimated CRCL calculation 68 ml/min; Estimated Glomerular Filt Rate > 60; Glucose 95 mg/dL (65-110); Potassium 3.6 mmol/L (3.4-5.0); Sodium 137 mmol/L (137-145)
[2022-12-29] MEDS: METOPROLOL SUCCINATE EXT REL 12.5 MG TABCR PO ×2 (08:35→09:54)
[2022-12-29] MEDS: FAMOTIDINE 20 MG/2 ML VIAL IV PUSH (08:35)
[2022-12-29] MEDS: SENNA/DOCUSATE SODIUM TABLET 1 TAB PO (09:59)
[2022-12-29] MEDS: guaiFENesin 12 HR 600 MG TABCR PO (09:59)
--- NOTE | 2022-12-29 11:53 | PM.DS ---
DS: Admitting Diagnosis Discharge Date December 29, 2022 Admitting Diagnosis Cholecystitis, AFib paroxysmal DS: Discharge Diagnosis Discharge Diagnosis (1) Choledocholithiasis: Code(s): K80.50 - Calculus of bile duct without cholangitis or cholecystitis without obstruction Status: Acute (2) Dilation of biliary tract: Code(s): K83.8 - Other specified diseases of biliary tract Status: Acute (3) Elevated LFTs: Code(s): R79.89 - Other specified abnormal findings of blood chemistry Status: Acute (4) Acute cholecystitis: Code(s): K81.0 - Acute cholecystitis Status: Acute Assessment and Plan: no signs of chf on exam or symptomatically ok for surgery - echo ordered (5) Afib: Code(s): I48.91 - Unspecified atrial fibrillation Status: Acute Assessment and Plan: continue bb Paroxysmal - now in NSR No anticoagulation as she is likely can have surgery. Cardiology consult ordered. Echo ordered TSH pending CHADSVASC2 score 2 (borderline htn = 3) - decide on AC post op DS: Summary Hospital Course Hospital Course: 72-year-old female came in with abdominal pain found have cholecystitis. Also known to have choledochal cyst. She will need to follow up with surgery and hepatobiliary referral will need to be made as an outpatient. She is tolerating a diet. While in the hospital she had episode of paroxysmal AFib. Aspirin and beta-ev low-dose has been started. Follow Cardiology. Time Spent with Patient Time attestation: Total time spent providing and/or coordinating discharge services: Exam Narrative: General: alert and oriented Psych: appropriate mood nad affect Eyes: PERRLA Neck: Trachea midline, no new lesions Skin: no changes Lungs: CTA Cardiac: Normal S1,S2, no MGR ABD: soft, nd, nt, nbs Ext: no new lesions, no cce Vasc: Pulses intact DS: Data Data Completed and Pending Labs on day of discharge: Labs from last 24 hours 12/29/22 12/28/22 12/26/22 04:34 13:09 04:34 WBC 8.8 RBC 4.14 L Hgb 12.4 Hct 37.8 MCV 91.3 MCH 30.0 MCHC 32.8 RDW 14.3 Plt Count 204 MPV 9.9 PT 13.9 INR 1.0 Sodium 137 136 L Potassium 3.6 3.3 L Chloride 105 102 Carbon Dioxide 26 27 Anion Gap 6 L 7 L BUN 8 11 D Creatinine 0.60 L 0.60 L Estim Creat Clear Calc 68 68 Estimated GFR > 60 > 60 Glucose 95 133 H Hemoglobin A1c 5.5 Calcium 7.8 L 8.0 L Magnesium 2.1 Total Bilirubin 1.3 2.4 H Direct Bilirubin 0.1 AST 105 H 268 H ALT 252 H 387 H Alkaline Phosphatase 368 H 450 H Total Protein 6.0 L 6.0 L Albumin 3.0 L 3.5 TSH (Reflex) 1.010 Discharge Plan Discharge Attending physician on discharge: Mega Kevin Consulting providers: Jarvis Browne; Katelynn Ramon V.; Fei Tyler Discharging Clinician: Mega Kevin Patient Disposition: Home, Self-Care Activity: as tolerated Diet: as tolerated Patient Instructions: Antibiotic Form Stand Alone Forms: General Discharge Information Follow-up/Referrals: Jina Thornton MD [Physician] - Fei Tyler MD [Physician] - Jarvis Browne MD [Physician] - Discharge Medications: New metoprolol succinate [Toprol XL] 25 mg Tablet Extended Release 24 Hr 25 mg PO QAM 30 Days Qty: 30 0RF aspirin 81 mg tablet,delayed release (DR/EC) 81 mg PO DAILY Qty: 30 0RF Date of admission: 12/27/22 14:48 Primary Care Provider: Kehinde,Sandra Admitting Provider: Jina Thornton Attending physician on admission: Jina Thornton Condition: Stable
--- NOTE | 2022-12-29 12:32 | PM.PNCARD ---
Progress Note: A&P Assessment and Plan (1) Atrial fibrillation with rapid ventricular response: Code(s): I48.91 - Unspecified atrial fibrillation Status: Acute Assessment and Plan: New onset symptomatic atrial fibrillation with rapid ventricular response with heart rate up to the 160s. CHADS2 Vasc score 2 (age, female sex) in which aspirin 81 mg daily reasonable. Once she turns 73, however, CHADS2 Vasc score will then be 3 and systemic anticoagulation advised as counseled. Patient verbalized understanding and agreed. -continue Toprol XL however increase to 25 mg daily as heart rate permits. Counseled to monitor heart rate and blood pressure in this regard as well as medication side effects. All questions answered to her satisfaction. Need to monitor closely on a preoperative basis as I anticipate she will have recurrence of atrial fibrillation. IV metoprolol as affective or necessary in unresponsive to AV sepideh blocking agents perioperatively amiodarone not unreasonable but given elevated LFTs with exercise caution in this regard. -2D echocardiogram personally reviewed preserved LV systolic function no significant valve pathology. Will review when available to assess for LV function, chamber size, valve pathology, pulmonary pressures. Her exam is not suggestive significant valvular heart disease but further confirmation warranted. Check TSH. -continue aspirin 81 mg daily and Toprol XL 25 mg daily. Patient stable for discharge from cardiac perspective. Follow-up with me in 1 month in the office. She has been instructed to contact us with any recurrence of atrial fibrillation a rapid palpitations or other concerns. Disposition per primary service. 2D echo: Summary ? 1. Left ventricular chamber dimension is normal. ? 2. Left ventricular systolic function is normal, estimated at >70%. ? 3. There is no increased left ventricular wall thickness. ? 4. The left ventricular diastolic function is grade I diastolic dysfunction. ? 5. Mild to moderate lipomatous hypertrophy of the interatrial septum. ? 6. There is mild aortic valve sclerosis. ? 7. There is no aortic valve stenosis. ? 8. There is trace mitral valve regurgitation. ? 9. There is trace tricuspid valve regurgitation. ? 10. No pulmonary hypertension, estimated pulmonary arterial systolic pressure is 27 mmHg. (2) Acute cholecystitis: Code(s): K81.0 - Acute cholecystitis Status: Acute Assessment and Plan: Management per Primary Service, GI, and surgery. Patient is a choledochal cyst for which she has been referred to hepatobiliary at [facility] is an outpatient. (3) Elevated LFTs: Code(s): R79.89 - Other specified abnormal findings of blood chemistry Status: Acute Assessment and Plan: Continue to monitor. Very likely consequence of acute cholecystitis and associated pathology. Subjective Date/time seen: Date of service: 12/29/22 12:32 Follow-up for paroxysmal atrial fibrillation Interval history: Patient feels well and has had no recurrent palpitations, chest pain or shortness of breath. Abdominal pain has improved and she is tolerating advancement in her diet. No atrial fibrillation overnight on telemetry. Heart rate stable without bradycardia or high-grade AV blocks. Review of Systems Review of Systems: Remainder of the review of systems is otherwise negative aside from that noted in the HPI. All systems reviewed & are unremarkable except as noted in HPI and below Constitutional: Constitutional: Reports as per HPI and Reports no additional constitutional complaints Eyes: Eyes: Reports as per HPI and Reports no additional eye complaints ENT: Reports system reviewed and no additional complaints, except as documented and Reports as per HPI Cardiovascular: Cardiovascular: Reports as per HPI and Reports no additional cardiovascular complaints Respiratory: Respiratory: Reports as per HPI and Reports no additional respi
== END 2022-12-29 12:53 | disposition home or self-care (01) | DRG 446 ==
LOC: ANHED 06:43 → ANH3MED 08:29 → ANHIMU 12-28 05:48
PROVIDERS: Internal Medicine Cardiovascular Disease; Internal Medicine Gastroenterology; Nurse Practitioner Family; Admitting Provider Surgery; Emergency Provider Emergency Medicine; PCP Family Medicine; Visit Provider Chiropractor
PROC: 0FC98ZZ Extirpation of Matter from Common Bile Duct, Via Natural or Artificial Opening Endoscopic (ICD-10-PCS; CPT 43260; principal; 2022-12-27 14:15)
DX: K80.62 Calculus of gallbladder and bile duct with acute cholecystitis without obstruction (principal); I48.0 Paroxysmal atrial fibrillation
CPT/HCPCS: 36415; 74177; 74183; 74329; 76376; 80048; 80053; 80076; 81003; 83036; 83690; 83735; 84443; 85025; 85027; 85610; 93005; 93306; 96361; 96365; 96375; 96376; 99285; A9270; A9577; G0378; J0330; J1100; J1170; J2405; J2543; J2704; J7030; J7120; Q9966; Q9967